=== PATIENT | female | born 1975 | race American Indian/Alaskan Native ===

== ENCOUNTER 2019-01-04 14:57 | Emergency (ER) | payer MEDICARE ==
[2019-01-04 15:09] VITALS: BMI 30.1
[2019-01-04 15:13] VITALS: BP 162/90; PULSE 69; RESP 18; TEMP 98.4; O2SAT 100
--- NOTE | 2019-01-04 15:26 | C.PDOC ---
History Of Present Illness 43 y/o female is brought in by ambulance complaining of bilateral knee pain, left ankle and wrist pain, and a small abrasion in the right hand after she tripped and fell. Patient denies LOC, head injuries, or any other complaints at this time. <Shirley Fletcher - Last Filed: 01/04/19 21:41> <Savannah Marques - Last Filed: 01/04/19 18:31> History Per: Patient History/Exam Limitations: no limitations Onset/Duration Of Symptoms: Hrs Current Symptoms Are (Timing): Still Present <Shirley Fletcher - Last Filed: 01/04/19 21:41> Time Seen by Provider: 01/04/19 15:17 Chief Complaint (Nursing): Lower Extremity Problem/Injury Past Medical History Vital Signs: Last Vital Signs Temp 98.4 F 01/04/19 15:09 Pulse 69 01/04/19 15:09 Resp 18 01/04/19 15:09 BP 162/90 H 01/04/19 15:09 Pulse Ox 100 01/04/19 15:26 <Savannah Marques - Last Filed: 01/04/19 18:31> Reviewed: Historical Data, Nursing Documentation, Vital Signs Vital Signs: Last Vital Signs Temp 98.4 F 01/04/19 15:09 Pulse 69 01/04/19 15:09 Resp 18 01/04/19 15:09 BP 162/90 H 01/04/19 15:09 Pulse Ox 100 01/04/19 15:09 Primary Care Provider: Loly Curry - Medical History PMH: Fibromyalgia, HTN Family History: States: No Known Family Hx - Social History Hx Alcohol Use: Yes Hx Substance Use: No - Immunization History Hx Tetanus Toxoid Vaccination: No Hx Influenza Vaccination: Yes Hx Pneumococcal Vaccination: No <Shirley Fletcher - Last Filed: 01/04/19 21:41> Review Of Systems Except As Marked, All Systems Reviewed And Found Negative. Constitutional: Negative for: Fever, Chills Musculoskeletal: Positive for: Other (bilateral knee pain, left ankle and wrist pain) Skin: Positive for: Other (abrasion to the right hand) Neurological: Negative for: Weakness, Numbness <Shirley Fletcher - Last Filed: 01/04/19 21:41> Physical Exam - Physical Exam Appears: Non-toxic, No Acute Distress Skin: Warm, Dry Head: Atraumatic, Normacephalic, No Abrasion, No Laceration Eye(s): bilateral: Normal Inspection Oral Mucosa: Moist Neck: Normal ROM, No Midline Cervical Tenderness, No Paracervical Tenderness Chest: No Deformity, No Tenderness Extremity: Tenderness (mild tenderness of the left wrist, tenderness of left lateral malleolus, and bilateral knee tenderness (left more than right) with superficial abrasions), Capillary Refill (<2 sec), No Deformity, No Swelling, Other (small abrasion to right hand, no active bleeding) Extremity: Bilateral: Normal Color And Temperature Pulses: Left Radial: Normal, Left Dorsalis Pedis: Normal Neurological/Psych: Oriented x3, Normal Speech, Normal Cognition, Normal Motor, Normal Sensation <Shirley Fletcher - Last Filed: 01/04/19 21:41> ED Course And Treatment O2 Sat by Pulse Oximetry: 100 (RA) Pulse Ox Interpretation: Normal <Shirley Fletcher - Last Filed: 01/04/19 21:41> Medical Decision Making Medical Decision Making: Patient states that she is up to date with tetanus immunizations. Ordered x-ray and Ibuporofen. voice and data technician came to bulk picker patient for x-ray, but patient refused to go, stating that she is not going anywhere until she gets her pain medications. Nurse Latoya brought Ibuprofen for her, but patient refused to take it, stating that Ibuprofen never works for her. Patient reports she has Fibromyalgia and she "knows her body and she won't take Ibuprofen". The nurse reported this to me, so Toradol 60 mg IM was ordered. When the nurse approached her with Toradol, patient states that she will not take it because it is not going to work and she doesn't wont "any needle'. Nurse reported to me and I went to talk to the patient. Patient reports that she was on pain management and "tolerates pain differently than other people". She states "I feel pain more than you do." Patient was told that strong opiates are only recommended for patients with fractures and post-operations and I explained to her hospital policy for taking Opiates. I asked her what pain medications normally works for her, but she didn't want to answer at first. She then later states that Tramadol is fine. Tramadol 50 mg po ordered. When the nurse went to her, patient states that if she's taking narcotics, she prefers to get it in injectable form. Nurse explained to her that Tramadol only comes in po form and patient became aggravated and rude to the nurse afterwards. Patient refused to take Tramadol from her, stating the nurse does not know what she is talking about. Patient was seen again and explained to her that Tramadol was the agreement, and she was highly recommended to take pain medication so she can get her x-rays. Patient states that she doesn't want nurse Latoya anymore so charge nurse Marbella was called, who sent nurse Mayur instead. RN Mayur gave patient Tramadol and patient took it without any complications. While waiting for mediation to work, highway technician was called to come and get patient for x-ray. When highway technician came back to see patient, she still refused to come and get the x-ray taken. Patient was rude to the techs so they came to inform me of her behavior. Patient was yelling and requesting charge nurse. Marbella was called again who spoke to the patient. Patient requested jemal wrap, wrist splint, and band-aid, so Marbella put Bacitracin and band-aid on the abrasion, and patient was put on jemal wrap as per patient's request. Marbella was trying to encourage patient to get the x-ray taken but she still refused. Patient is now ambulatory in the ER and is requesting discharge papers. Patient was explained that since she did not complete full evaluation, she cannot be discharge because the extent of her bone injuries are unknown. Patient started screaming and yelling in ED FT. Attending Dr. Marques intervened to calm the patient down and asked her lower her voice. Patient became aggressive and rude to Dr. Marques after and patient's had to step in between Dr. Marques and the patient after patient started to try to reach at the attending. Security was called at this time and patient was then escorted from the ER. The whole situation was witnessed by nurse Latoya Mix, DONTRELL Fletcher, DONTRELL Busby, Simone Zavala, and attending Dr. Savannah Marques. <Shirley Fletcher - Last Filed: 01/04/19 21:41> Disposition <JeraldBennieSavannah Gali - Last Filed: 01/04/19 18:31> - Disposition Disposition Time: 18:20 <Shirley Fletcher - Last Filed: 01/04/19 21:41> - Disposition Disposition: AGAINST MEDICAL ADVICE Condition: STABLE Forms: [employer] (Malay) - Clinical Impression Clinical Impression: Fall, Injury, other and unspecified, knee, leg, ankle, and foot, Left wrist injury, Abrasion of right hand - PA / MILLER HELPER / Resident Statement MD/DO has reviewed & agrees with the documentation as recorded. - Scribe Statement The provider has reviewed the documentation as recorded by the Scribe Vandana Zavala All medical record entries made by the Scribe were at my direction and personally dictated by me. I have reviewed the chart and agree that the record accurately reflects my personal performance of the history, physical exam, medical decision making, and the department course for this patient. I have also personally directed, reviewed, and agree with the discharge instructions and disposition. <Shirley Fletcher - Last Filed: 01/04/19 21:41> Addendum Addendum: 01/04/19 18:09 Patient has been in the ED FT for approx 3 hours. She has refused multiple rounds of pain medication (Motrin, Toradol IM, initially refused Tramadol), asking for "injection of narcotic" instead. PA explained our strict pain/opiate policy in ED. Patient refused treatment by FT nurse Latoya, was given PO Tramadol by nurse Mayur (working in peds). Patient also refused Xrays multiple times, ER techs came by 3 times to attempt to get Xrays. Patient angry, states she is being "profiled and discriminiated against". Patient demanded to see charge nurse, Marbella came to bedside and wrapped up areas of pain/injury. Patient had not had any Xrays, it is unclear if she had any acute bony injury. Due to that, she will not be discharged from ED until we can confirm no bony injury, she will need to sign out AMA or elope. Patient became belligerent when not given discharge papers, her had to step between her and me - security called to bedside to escort patient out. Patient ambulated normally out of ED escorted by security. Multiple staff members were present during the entire FT stay and witnessed patient's behavior, including Rayna Watson and simone Cuevas Nurse Ingrid. <Savannah Marques - Last Filed: 01/04/19 18:31>
== END 2019-01-04 18:00 | disposition left against medical advice (07) ==
LOC: C.ER 14:57
DX: S60.511A Abrasion of right hand, initial encounter (principal); S69.92XA Unspecified injury of left wrist, hand and finger(s), initial encounter; S89.92XA Unspecified injury of left lower leg, initial encounter; W01.0XXA Fall on same level from slipping, tripping and stumbling without subsequent striking against object, initial encounter; M79.7 Fibromyalgia; I10 Essential (primary) hypertension